=== PATIENT | female | born 1995 | race Caucasian/White ===

== ENCOUNTER → 2021-05-23 13:01 | Outpatient (CLI) | payer OTHER, SELFPAY ==
--- NOTE | 2021-05-23 13:04 | DI.US.S_ITS ---
PROCEDURE: US OB LIMITED INDICATIONS: DATING OUTSIDE/PRIOR DATING DATA: Last menstrual period (LMP): Uncertain . First dating scan (date and location): [facility]; May 23, 2021 . Estimated date of delivery (YONY) from first dating scan: November 04, 2021 . TECHNIQUE: Real-time scanning was performed of the fetus, with image documentation and biometric measurements. COMPARISON: None. FINDINGS: General: A single living intrauterine gestation is present. Presentation: Variable. Placenta: Placental position is posterior , without previa. Amniotic fluid index: 13.3 cm, normal range is 5-24 cm. heart rate: 143 beats per minute. Maternal cervical canal: Not evaluated. biometrics: Biparietal diameter: 3.7 cm Head circumference: 13 cm Abdominal circumference: 10.4 cm Femur length: 1.8 cm Estimated gestational age from initial scan: not applicable. Composite gestational age from present scan: 16 weeks, 3 days Estimated weight: 141 g +/-21 g Measurement variability for biometric dating: +/- 7 days from 14 weeks to 15 weeks 6 days gestation, +/- 10 days from 16 weeks to 21 weeks 6 days gestation, +/- 2 weeks from 22 weeks to 27 weeks 6 days gestation, +/- 3 weeks for 28 weeks gestation or later. weight reference: 4500 g or EFW >90/95% is considered macrosomia or large for gestational age. EFW <10% is small for gestational age. EFW 5% or less is considered intra-uterine growth restriction. Other: Not applicable. IMPRESSION: Live single intrauterine gestation as detailed above. Dictated by: Amador Owens M.D. on 05/23/2021 at 14:33 Approved by: Amador Owens M.D. on 05/23/2021 at 14:36
== END ==
PROVIDERS: PCP Physician Assistant; Referring Provider Family Medicine; Visit Provider Family Medicine
DX: Z34.82 Encounter for supervision of other normal pregnancy, second trimester (principal); Z3A.16 16 weeks gestation of pregnancy
CPT/HCPCS: 76815

== ENCOUNTER → 2021-06-19 10:03 | Outpatient (CLI) | payer OTHER, SELFPAY ==
[2021-06-19 11:05] LABS: Appearance Urine UA SL CLOUDY; Bilirubin Urine UA NEGATIVE (NEGATIVE); Color Urine UA YELLOW; Glucose Urine UA NEGATIVE (Negative); Ketones Urine UA NEGATIVE (NEGATIVE); Leukocyte Esterase Urine UA 2+ (NEGATIVE); Nitrite Urine UA NEGATIVE (Negative); Occult Blood Urine UA NEGATIVE (Negative); Protein Urine UA NEGATIVE (Negative); Specific Gravity Urine UA <=1.005 (1.000-1.035); Urobilinogen Urine UA 0.2 E.U./dL (0.2)
[2021-06-19 11:07] LABS: Add Manual Diff / Slide Review NO; Basophils Absolute Auto 0 /uL (0-100); Basophils Percent Auto 0.4 % (0-2); Eosinophils Absolute Auto 100 /uL (0-450); Hematocrit 34.5 % (36-46); Hemoglobin 11.9 g/dL (12.0-16.0); Lymphocytes Absolute Auto 2200 /uL (1100-4500); Lymphocytes Percent Auto 23.6 % (25-40); Mean Corpuscular HGB Conc 34.5 % (30-36); Mean Corpuscular Hemoglobin 30.7 PG (26-34); Monocytes Absolute Auto 600 /uL (0-900); Monocytes Percent Auto 6.8 % (3-14); Neutrophils Absolute Auto 6300 /uL (1500-7000); Neutrophils Percent Auto 68.2 % (50-75); Platelet Count 200 X10^3/uL (150-400); Red Blood Cell Count 3.87 X10^6/uL (4.0-5.2); Red Cell Distribution Width 13.8 % (11.6-14.8); White Blood Cell Count 9.2 X10^3/uL (4.5-11.0)
[2021-06-19 11:12] LABS: Amorphous Sediment Urine 1+; Bacteria Urine Moderate (10-30); RBC Urine None Seen (0-5/HPF); Squamous Epithelial Cell Urine 10-30 /HPF (0-5/HPF); WBC Urine 1-5/HPF (0-5/HPF)
[2021-06-20 08:26] LABS: RPR Screen Non Reactive (Non Reactive)
[2021-06-20 08:36] LABS: Varicella IgG Antibody 1303 index (Immune >165)
[2021-06-23 00:04] LABS: AFP, Serum 67.1 ng/mL (.); Calc Gestational Age EDD (.); Estriol, Free 1.75 ng/mL (.); Inhibin A, Dimeric 289.56 pg/mL (.); Inhibin A, MoM 1.65 (.); Maternal Ethnicity Caucasian (.); Maternal Weight 173 lbs (.); Number of Fetuses No (.); OSBR Risk 1 IN 5748 (.); Results Report (.); Test Results *Screen Negative* (.); hCG, MoM 1.17 (.); hCG, Serum 26389 mIU/mL (.)
== END ==
PROVIDERS: PCP Physician Assistant; Referring Provider Family Medicine; Visit Provider Family Medicine
DX: Z34.82 Encounter for supervision of other normal pregnancy, second trimester; Z3A.19 19 weeks gestation of pregnancy
CPT/HCPCS: 36415; 80055; 81003; 81015; 82105; 82677; 84702; 86336; 86787; 86803; 86850; 86900; 86901; 87086

== ENCOUNTER → 2021-06-29 12:02 | Outpatient (CLI) | payer OTHER, SELFPAY ==
--- NOTE | 2021-06-29 12:03 | DI.US.S_ITS ---
PROCEDURE: US OB >= 14 WEEKS FETUS INDICATIONS: ANATOMY OUTSIDE/PRIOR DATING DATA: Last menstrual period (LMP): Unknown. First dating scan (date and location): [facility]; May 23, 2021. Estimated date of delivery (YONY) from first dating scan: November 04, 2021. The calculations are made using the ultrasound YONY of November 04, 2021. TECHNIQUE: Real-time scanning was performed of the fetus, with image documentation and biometric measurements. COMPARISON: None. FINDINGS: General: A single living intrauterine gestation is present. Presentation: Breech. Placenta: Placental position is right fundal , without previa. Amniotic fluid index: 12.7 cm, normal range is 5-24 cm. Single deepest vertical pocket is 4.5 cm. heart rate: 149 beats per minute. Maternal cervical canal: 3.9 cm long. Normal lower limit is 2.5 cm. biometrics: Biparietal diameter: 5.3 cm Head circumference: 19.9 cm Abdominal circumference: 16.2 cm Femur length: 3.5 cm Clinically estimated gestational age: 21 weeks, 5 days Composite gestational age from present scan: 21 weeks, 5 days Estimated weight and percentile: 417 g +/-62 g; 26th percentile Anatomic survey: Neuro: Ventricles are non-dilated at less than 10 mm. Cisterna magna is normal at 3-11 mm. Cerebellum is normal in size and morphology. Nuchal skin fold: Normal at less than 6 mm between 14-21 weeks gestational age. Face: Nose and lips, facial profile are normal. Spine: No evidence for spina bifida. Heart: 4-chambered heart is present, with normal ventricular outflow tracts. Diaphragm: Diaphragm is intact. Stomach: Left-sided stomach is present. Kidneys: No hydronephrosis. Normal is less than 5 mm in 2nd trimester, less than 7 mm in 3rd trimester. Cord: 3-vessel cord has orthotopic insertion. Bladder: Normal in size. Extremities: All 4 extremities identified. IMPRESSION: No significant abnormality. We strive to produce accurate, complete, and clear reports of imaging services. To assist us in improving patient care, this report was composed using standard report templates and voice recognition software. Therefore, it may contain abnormal punctuation, insertions and/or omissions. Occasional wrong-word or sound-alike substitutions may occur. Though we review the report and make efforts to correct it, we do recommend that the report be read carefully in proper context to recognize any text inaccuracies. Dictated by: Amador Owens M.D. on 06/29/2021 at 14:05 Approved by: Amador Owens M.D. on 06/29/2021 at 14:08
== END ==
PROVIDERS: PCP Physician Assistant; Referring Provider Family Medicine; Visit Provider Family Medicine
DX: Z36.89 Encounter for other specified antenatal screening (principal); Z3A.21 21 weeks gestation of pregnancy
CPT/HCPCS: 76811

== ENCOUNTER → 2021-08-17 11:12 | Outpatient (CLI) | payer OTHER, SELFPAY ==
[2021-08-17 13:41] LABS: Add Manual Diff / Slide Review NO; Basophils Absolute Auto 0 /uL (0-100); Basophils Percent Auto 0.2 % (0-2); Eosinophils Absolute Auto 100 /uL (0-450); Eosinophils Percent Auto 1.5 % (2-4); Hematocrit 31.6 % (36-46); Hemoglobin 11.2 g/dL (12.0-16.0); Lymphocytes Absolute Auto 1800 /uL (1100-4500); Lymphocytes Percent Auto 20.2 % (25-40); Mean Corpuscular HGB Conc 35.3 % (30-36); Mean Corpuscular Hemoglobin 31.5 PG (26-34); Mean Corpuscular Volume 89.4 fL (80-100); Monocytes Absolute Auto 800 /uL (0-900); Monocytes Percent Auto 8.7 % (3-14); Neutrophils Absolute Auto 6100 /uL (1500-7000); Neutrophils Percent Auto 69.4 % (50-75); Platelet Count 178 X10^3/uL (150-400); Red Blood Cell Count 3.54 X10^6/uL (4.0-5.2); Red Cell Distribution Width 13.5 % (11.6-14.8); White Blood Cell Count 8.8 X10^3/uL (4.5-11.0)
[2021-08-17 14:33] LABS: GTT (PREG) 1 Hour PP 50gm Dose 82 mg/dL (76-139)
== END ==
PROVIDERS: PCP Physician Assistant; Referring Provider Family Medicine; Visit Provider Family Medicine
DX: Z34.03 Encounter for supervision of normal first pregnancy, third trimester (principal); Z3A.27 27 weeks gestation of pregnancy
CPT/HCPCS: 36415; 82950; 85025

== ENCOUNTER → 2021-10-10 10:47 | Outpatient (CLI) | payer OTHER, SELFPAY | PROVIDERS: PCP Physician Assistant; Visit Provider Family Medicine | DX: Z13.9 Encounter for screening, unspecified (principal); O99.820 Streptococcus B carrier state complicating pregnancy; Z3A.35 35 weeks gestation of pregnancy | CPT/HCPCS: 87081; 87653 ==

== ENCOUNTER 2021-11-13 16:52 | Outpatient (CLI) | payer OTHER, SELFPAY | END 2021-11-13 17:48 | disposition home or self-care (01) | LOC: OB 11-15 07:34 | PROVIDERS: PCP Physician Assistant; Referring Provider Family Medicine; Visit Provider Family Medicine | DX: O42.92 Full-term premature rupture of membranes, unspecified as to length of time between rupture and onset of labor (principal); O48.0 Post-term pregnancy; Z3A.40 40 weeks gestation of pregnancy | CPT/HCPCS: 59025; 84112; G0378; G0379 ==

== ENCOUNTER 2021-11-15 01:24 | Inpatient (IN) | payer OTHER, SELFPAY ==
[2021-11-15] MEDS: LACTATED RINGERS 1,000 ML 100 ML IV ×3 (02:15→11:08)
[2021-11-15 02:34] LABS: Add Manual Diff / Slide Review NO; Basophils Absolute Auto 0 /uL (0-100); Basophils Percent Auto 0.3 % (0-2); Eosinophils Absolute Auto 100 /uL (0-450); Eosinophils Percent Auto 1.3 % (2-4); Hematocrit 35.4 % (36-46); Hemoglobin 11.8 g/dL (12.0-16.0); Lymphocytes Absolute Auto 2400 /uL (1100-4500); Lymphocytes Percent Auto 21.9 % (25-40); Mean Corpuscular HGB Conc 33.4 % (30-36); Mean Corpuscular Hemoglobin 30.2 PG (26-34); Mean Corpuscular Volume 90.4 fL (80-100); Monocytes Absolute Auto 1200 /uL (0-900); Monocytes Percent Auto 10.7 % (3-14); Neutrophils Absolute Auto 7300 /uL (1500-7000); Neutrophils Percent Auto 65.8 % (50-75); Platelet Count 165 X10^3/uL (150-400); Red Blood Cell Count 3.92 X10^6/uL (4.0-5.2); Red Cell Distribution Width 13.6 % (11.6-14.8); White Blood Cell Count 11.1 X10^3/uL (4.5-11.0)
[2021-11-15 02:45] LABS: COVID19 -Nasal RAPID Negative (Negative)
[2021-11-15] MEDS: fentaNYL 100 MCG/2 ML INJ (02:55)
[2021-11-15] MEDS: FENT 2MCG/ML BUPIV 0.125% EPI 200 MCG/100 ML PLAST..BAG 12 MCG EPIDURAL ×2 (03:05→09:15)
[2021-11-15] MEDS: ONDANSETRON 4 MG/2 ML INJ IV (03:10)
--- NOTE | 2021-11-15 03:13 | PM.AN.REGBLK ---
Regional Block Pre-procedure Procedure: Continuous Lumbar Epidural for L&D Attending OB provider: Ailin Saucedo PMH/ROS narrative: Hx: No personal or family history of anesthesia problems. PSH/Anesthesia history narrative: none Exam narrative: MP1, RRR< CTAB ASA Class: II Labs: Hct 35.4 % (36-46) L 11/15/21 02:15 Plt Count 165 X10^3/uL (150-400) 11/15/21 02:15 Medications: Current Medications Generic Name Dose Route Start Last Admin Trade Name Freq PRN Reason Stop Dose Admin Carboprost Tromethamine 250 mcg 11/15/21 02:04 Carboprost 250 Mcg/Ml Ampul IM Q90M PRN Bleeding Lactated Ringer's 1,000 mls @ 100 mls/hr 11/15/21 02:15 11/15/21 02:15 Lactated Ringers IV 100 mls/hr CONT LAINE Administration Oxytocin/Lactated Ringer's 30 unit in 500 mls @ 200 mls/hr 11/15/21 02:04 Oxytocin Premix IV CONT PRN Bleeding Protocol Tranexamic Acid 1,000 mg/ 100 mls @ 200 mls/hr 11/15/21 02:04 Sodium Chloride IV NOW PRN Bleeding Methylergonovine Maleate 0.2 mg 11/15/21 02:04 Methylergonovine 0.2 Mg Tablet PO Q6HR PRN Heavy Bleeding Methylergonovine Maleate 0.2 mg 11/15/21 02:04 Methylergonovine 0.2 Mg/Ml Vial IM NOW PRN Bleeding Misoprostol 800 mcg 11/15/21 02:04 Misoprostol 200 Mcg Tablet WV NOW PRN Bleeding Misoprostol 1,000 mcg 11/15/21 02:04 Misoprostol 200 Mcg Tablet WV NOW PRN Bleeding Misoprostol 400 mcg 11/15/21 02:04 Misoprostol 200 Mcg Tablet SL NOW PRN Bleeding Ondansetron HCl 4 mg 11/15/21 02:04 Ondansetron 4 Mg/2 Ml Inj IV Q4HR PRN Nausea And Vomiting Oxytocin 10 unit 11/15/21 02:04 Oxytocin 10 Unit/Ml Vial IM NOW PRN Bleeding Allergies: Allergies Allergy/AdvReac Type Severity Reaction Status Date / Time No Known Drug Allergies Allergy Verified 11/07/21 14:07 Procedure Insertion date: 11/15/21 Insertion time: 02:57 Prep/Local: betadine x3 (chloroprep) and 1% lidocaine Interspace: L2-3 Patient position: sitting Needle: 18 gauge Katietead (with 27G pencil point needle-through needle for IT dose) Loss of resistance with: saline (with air bubble) DENYS at (cm): 5 Catheter placed at SKIN (cm): 11 Catheter in SPACE (cm): 6 Insertion: Yes CSF, No Blood, No Paresthesia with insertion, No Paresthesia with injection and No Test dose reaction Initial Medications TEST DOSE time: 02:57 TEST DOSE: 1.5% lidocaine with epinephrine 1:200k (mL): 5 (3mL initial test dose, 2mL as part of first bolus) BOLUS DOSE time: 02:58 BOLUS DOSE (mL): 2 BOLUS DOSE med: other (10mcg fentanyl intrathecally, 90mcg fentanyl via epidural catheter) Infusion INFUSION: 0.0625% bupivacaine and with fentanyl 2 mcg/mL Initial rate (mL/hr): 12 (with bolus of 5mL Q15min lockout) Post-procedure Anesthesia time START: 02:43 Anesthesia time END: 12:05 Post-procedure Anesthesia Assessment: No Anesthesia complications
--- NOTE | 2021-11-15 08:06 | P.HPOB_ITS ---
OB HPI Date/Time Date of admission: 11/15/21 Date Patient Seen: 11/15/21 Time Patient Seen: 07:20 History of Present Condition Chief complaint: CONTRACTIONS YONY Calculator Estimated Delivery Date Method Current WG Current Estimate 11/12/21 LMP (Certain) 40w 3d : 2 Para: 0 Narrative: 25-year-old at 40 weeks and 3 days who arrived to the center in active labor. Contractions began late last night and increased in intensity. Denies leaking or bleeding and reports good movement. has been uncomplicated. care: good care, initiated at week # (15), number of visits (11) and pounds weight gain (13) Dating criteria OB: LMP confirmed by 2nd trimester US Ultrasounds: normal mid trimester US Obstetrical complications: none Medical complications OB: none Preadmission Labs Last OB Lab Results: Blood Type A Positive 11/15/21 02:15 11/15/21 Antibody Screen Negative 11/15/21 02:15 11/15/21 Hematocrit 35.4 % (36-46) L 11/15/21 02:15 11/15/21 Hemoglobin 11.8 g/dL (12.0-16.0) L 11/15/21 02:15 11/15/21 Hepatitis B Surface Antigen Negative s/c (NEGATIVE) 06/19/21 10:25 06/19/21 Hepatitis C Antibody Negative s/c (NEGATIVE) 06/19/21 10:25 06/19/21 Rubella Antibody 7.7 IU/mL (>15) L 06/19/21 10:25 06/19/21 Varicella-Zoster IgG Antibody 1303 index (Immune >165) 06/19/21 10:25 06/19/21 Glucose 1 Hour 82 mg/dL (76-139) 08/17/21 12:27 08/17/21 -: Chlamydia screen: negative, Gonorrhea screen: negative and Urine: negative Genetic Screens: Quad screen: Normal External Labs -: Urine: negative Prior (ies) Past Pregnancies Del. Date GA/Weeks Labor Lgth Wt Sex Route Outcome Anesthesia Place Delv Breastfeed Preg Comp Name 12/12/16 8 elective Delivery Date: 12/12/16 Last Updated by: Faith Aceves MD (Pt prefers not to discuss at appointment). D&C, no complications. Evaluation Evaluation Baseline heart rate: 125 Variability: Moderate (11-25) monitor accelerations: Present Monitor Decelerations: Late (Subtle late decels, resolved with fluid bolus and position change) Contraction Frequency (minutes): 3 Status: Category ll Dilation (cm): 4 Effacement (%): 100 station: -2 [facility] Medical History Left elbow fracture (~2002) Wrist fracture, bilateral (~1999) Family History Mother Depression Bipolar 1 disorder Father No problems noted. Grandmother Depression Grandfather Unknown family medical history Grandmother Lung cancer Smoker Grandfather Myocardial infarct Diabetes mellitus Liver failure Lip cancer Social History marital status: unmarried,living together number of children: 0 household members: significant other lives independently: Yes caregiver/support person: No housing: house pets and animals: Yes (2 dogs: safe.) education level: college (Some college. 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 ) frequency: daily duration: 30-45 minutes/day Meds Home Medications and Allergies Home Medications Medication Instructions Recorded Confirmed Type double electric breast pump & #1 ea 09/26/21 11/07/21 Rx supplies Allergies Allergy/AdvReac Type Severity Reaction Status Date / Time No Known Drug Allergies Allergy Verified 11/07/21 14:07 OB Exam Narrative Exam Narrative: Temperature 35.7? blood pressure 96/67 heart rate 89 HENMT Head: normal to inspection Mouth: oral mucosae normal Eyes General: appearance normal, both eyes and all related structures Resp Effort & Inspection: normal respiratory effort Cardio Rate: regular rate Rhythm: regular rhythm Extremities Lower extremity: Yes normal to inspection; No edema Presentation: vertex Estimated Weight (lbs): 7 Objective Labs Result Diagrams: 11/15/21 02:15 Labs: Laboratory Results - last 24 hr 11/15/21 11/15/21 11/15/21 02:15 02:15 02:15 WBC 11.1 H RBC 3.92 L Hgb 11.8 L Hct 35.4 L MCV 90.4 MCH 30.2 MCHC 33.4 RDW 13.6 Plt Count 165 Neut % (Auto) 65.8 Lymph % (Auto) 21.9 L Angelina % (Auto) 10.7 Eos % (Auto) 1.3 L Baso % (Auto) 0.3 Neut # (Auto) 7300 H Lymph # (Auto) 2400 Angelina # (Auto) 1200 H Eos # (Auto) 100 Baso # (Auto) 0 SARS-CoV-2 (PCR) Negative Blood Type A Positive Antibody Screen Negative Assessment and Plan Assessment and Plan Assessment and Plan narrative: 25-year-old at 40 weeks and 3 days in active labor. Now comfortable with epidural. GBS negative, COVID negative. She was having subtle late decelerations followed by 2 deeper late decelerations after SVE. Decelerations resolved with fluid bolus in position change and EFM back to category 1. Continue expectant management. Anticipate .
[2021-11-15] MEDS: miSOPROStoL 200 MCG TABLET 800 MCG PR (12:15)
--- NOTE | 2021-11-15 12:46 | PM.OBPRVD ---
Labor & Delivery Delivery date: 11/15/21 Delivery monitor: external FHT Route of delivery: L&D Laceration Description: Perineal - 2nd Degree Delivery repair: vicryl Estimated blood loss (mL): 350 Anesthesia Type: Epidural Narrative: Stage I Patient is a 25-year-old at 40 weeks and 3 days gestation who arrived on labor and delivery in active labor. She went on to receive an epidural with excellent pain control. Spontaneous rupture membranes occurred at 7:45 a.m. with thin meconium. She was complete at 10:39 a.m. however without the urge to push. She was allowed to labor down for an hour. EFM category 1. Stage II She pushed for 17 minutes and delivered a vigorous female infant at 12:05 p.m.. was vertex and LUCIE. There was a loose nuchal cord which was reduced followed by delivery of the infant. was placed on mother's abdomen. Cord was clamped and cut after 1 minute delay. Apgars were 8 and 9. No resuscitation of the required beyond drying, stimulating a bulb suction. Stage III Placenta delivered at 12:15 p.m.. The cord avulsed when the placenta was in the vagina. Placenta was then manually removed from the vagina and was no longer in the uterus. Placenta appeared intact with a three-vessel cord. Pitocin bolus initiated after delivery of the placenta however given persistent trickling with fundal massage, 800 mcg of Cytotec was administered per rectum. There was improvement in uterine tone and hemostasis assured. A second-degree perineal laceration was repaired with 3-0 Vicryl in the usual fashion with good hemostasis. EBL: 350 mL. Needle and sponge counts were correct. The vagina was inspected and no items were left in situ. Patient was doing well with her and partner at bedside. Baby 1: gender: Female Presentation: vertex Position: Left Occiput Anterior Cord Vessel Description: 3 Vessels and Nuchal Cord (X1 reduced) score (1 min): 8 score (5 min): 9 Plan for aftercare: Routine care
[2021-11-15] MEDS: IBUPROFEN 600 MG TABLET PO ×2 (15:40→21:41)
[2021-11-15 19:55] VITALS: BP 119/72
[2021-11-16] MEDS: ACETAMINOPHEN 325 MG TABLET 650 MG PO ×2 (01:21→07:53)
[2021-11-16] MEDS: DERMOPLAST SPRAY 20% 60 ML 1 SPRAY TOP (01:22)
[2021-11-16] MEDS: LANOLIN OINT 7 GM 1 APPLIC TOP (01:22)
[2021-11-16] MEDS: IBUPROFEN 600 MG TABLET PO ×3 (04:03→18:06)
[2021-11-16 07:11] LABS: Hematocrit 29.5 % (36-46); Hemoglobin 10.2 g/dL (12.0-16.0)
[2021-11-16] MEDS: DOCUSATE 100 MG CAPSULE PO (10:27)
--- NOTE | 2021-11-16 13:31 | P.DS_ITS ---
Discharge Providers Provider Date of admission: 11/15/21 01:24 Discharge Date: 11/16/21 Primary care physician: Fernie Li PA-C Consults: 11/16/21 12:47 Consult to Stretcher Helper Routine Comment: Discharge provider: Faith Aceves MD Summary Hospital Course Date Patient Seen: 11/16/21 Time Patient Seen: 13:00 Diagnoses: 40w3d gestation Hospital Course: The pt presented in active labor. She had SROM with thin meconium present. She had an epidural for pain control. She progressed to complete and had an of a viable baby girl without complications. A 2nd degree perineal laceration was then repaired. , there were no complications. At the time of discharge she was voiding, ambulating, and passing flatus without difficulty. Her lochia was decreasing appropriately. She was with good latch. Her pain was well controlled. She will f/u in 6 weeks for check. She most likely desires OCPs for contraception. Peripartum Data Infant Delivery Method: Natural Vaginal Laceration Description: Perineal - 2nd Degree Episiotomy description: None Procedures: Spontaneous vaginal delivery complications: none [place] 1: Gender: Female Disposition of : home Discharge Diagnosis (1) Spontaneous vaginal delivery: Status: Acute Time Spent with Patient Time attestation: Total time spent providing and/or coordinating discharge services: Objective Labs Result Diagrams: 11/16/21 06:49 Labs: Laboratory Results - last 24 hr 11/16/21 06:49 Hgb 10.2 L Hct 29.5 L Exam Narrative Exam Narrative: Gen: NAD, sitting comfortably in bed, appears well CV: RRR, no murmurs Resp: clear to auscultation bilaterally Abd: soft, appropriately tender, fundus firm and below the umbilicus, nondistended Ext: no edema Discharge Plan Discharge Plan Patient Disposition: Home Discharge orders & Medications Prescriptions: New acetaminophen 325 mg Tablet 650 mg PO Q6HR PRN (Reason: Pain, Mild (1-3)) Qty: 30 0RF docusate sodium 100 mg Capsule 100 mg PO DAILY Qty: 30 0RF ibuprofen 600 mg Tablet 600 mg PO Q6HR PRN (Reason: Pain, Mild (1-3)) Qty: 30 0RF Continued (DME) double electric breast pump & supplies See Rx Instructions .ROUTE .MEDSUPPLY Qty: 1 0RF Rx Instructions: As directed Follow up/Referrals: Fernie Li PA-C [Primary Care Provider] - Faith Aceves MD [Physician] - 6 Weeks (Please call clinic to make follow up appointment with Dr Aceves [phone]) Diet/Activity/Treatments Diet: Diet as Tolerated and Regular Skin/Wound/Dressing Care Report to your healthcare provider any signs of infection, such as:: chills, fever, increased pain and unusual drainage Visit Report/Discharge Packet Instructions: DI for Labor and Delivery, Vaginal Stand Alone Forms: Discharge: Care Visit Report Forms: Patient Portal/API, Stroke Signs & Symptoms Discharge Data Primary Care Provider: Fernie Li Discharges patient from system. Discharge Date/Time: 11/16/21 18:50
[2021-11-16 17:39] VITALS: BP 122/74; PULSE 63; RESP 18; TEMP 36.5
== END 2021-11-16 18:50 | disposition home or self-care (01) | DRG 807 ==
PROVIDERS: Admitting Provider Family Medicine; PCP Physician Assistant; Referring Provider Specialist; Visit Provider Family Medicine
DX: O42.02 Full-term premature rupture of membranes, onset of labor within 24 hours of rupture (principal); Z37.0 Single live birth; O48.0 Post-term pregnancy; O70.1 Second degree perineal laceration during delivery; Z3A.40 40 weeks gestation of pregnancy; O69.81X0 Labor and delivery complicated by cord around neck, without compression, not applicable or unspecified; O77.0 Labor and delivery complicated by meconium in amniotic fluid; Z20.822 Contact with and (suspected) exposure to COVID-19
CPT/HCPCS: 01967; 36415; 59050; 59400; 59409; 85014; 85018; 85025; 86850; 86900; 86901; 87635; C9803; G0379; J2405; J3010; S0191

== ENCOUNTER → 2024-05-26 11:07 | Outpatient (CLI) | payer OTHER, SELFPAY ==
[2024-05-26 14:50] LABS: Urine Chlamydia NOT DETECTED; Urine N gonorrhoeae NOT DETECTED
== END ==
PROVIDERS: Visit Provider Obstetrics & Gynecology
DX: Z11.3 Encounter for screening for infections with a predominantly sexual mode of transmission (principal); Z3A.14 14 weeks gestation of pregnancy
CPT/HCPCS: 87491; 87591

== ENCOUNTER → 2024-05-26 12:02 | Outpatient (CLI) | payer OTHER, SELFPAY ==
[2024-05-26 12:58] LABS: Add Manual Diff / Slide Review NO; Basophils Absolute Auto 0 /uL (0-100); Basophils Percent Auto 0.4 % (0-2); Eosinophils Absolute Auto 0 /uL (0-450); Eosinophils Percent Auto 0.5 % (2-4); Hematocrit 38.2 % (36-46); Lymphocytes Absolute Auto 2000 /uL (1100-4500); Mean Corpuscular HGB Conc 33.9 % (30-36); Mean Corpuscular Hemoglobin 29.9 PG (26-34); Mean Corpuscular Volume 88.2 fL (80-100); Monocytes Absolute Auto 500 /uL (0-900); Monocytes Percent Auto 6.2 % (3-14); Neutrophils Absolute Auto 5400 /uL (1500-7000); Neutrophils Percent Auto 67.9 % (50-75); Platelet Count 224 X10^3/uL (150-400); Red Blood Cell Count 4.33 X10^6/uL (4.0-5.2); Red Cell Distribution Width 13.3 % (11.6-14.8); White Blood Cell Count 7.9 X10^3/uL (4.5-11.0)
[2024-05-26 13:14] LABS: Natera Collection Specimen Collected
[2024-05-27 17:32] LABS: Hepatitis B Surface Antigen NEGATIVE s/c (NEGATIVE)
[2024-05-27 17:43] LABS: HIV 1 & 2 Ab/Ag 4th Gen Combo NEGATIVE (NEGATIVE); Hep C Virus Ab w/Reflex Quant NEGATIVE s/c (NEGATIVE)
[2024-05-28 01:08] LABS: RPR Screen Non Reactive (Non Reactive)
== END ==
LOC: LAB 12:03
PROVIDERS: Referring Provider Obstetrics & Gynecology; Visit Provider Obstetrics & Gynecology
DX: Z34.82 Encounter for supervision of other normal pregnancy, second trimester (principal); Z36.0 Encounter for antenatal screening for chromosomal anomalies; Z11.3 Encounter for screening for infections with a predominantly sexual mode of transmission; Z3A.14 14 weeks gestation of pregnancy
CPT/HCPCS: 36415; 80055; 82105; 86787; 86803; 86850; 86900; 86901; 87086; 87389; 87491; 87591

== ENCOUNTER → 2024-08-02 06:57 | Outpatient (CLI) | payer OTHER, SELFPAY ==
--- NOTE | 2024-08-02 06:58 | DI.US.S_ITS ---
PROCEDURE: US OB >= 14 WEEKS FETUS INDICATIONS: 20 week anatomy scan OUTSIDE/PRIOR DATING DATA: Last menstrual period (LMP): 02/13/2024 LMP-based estimated date of delivery (YONY): 11/19/2024 First dating scan (date and location): 05/26/2024 Estimated date of delivery (YONY) from first dating scan: 11/02/2024 The calculations are made using the working YONY of 11/02/2024 TECHNIQUE: Real-time scanning was performed of the fetus, with image documentation and biometric measurements. Endovaginal scanning: Not performed COMPARISON: [facility], OB >= 14 WEEKS FETUS, 06/29/2021, 12:20. FINDINGS: General: A single living intrauterine gestation is present. Presentation: Vertex. Placenta: Placental position is anterior, without previa. Amniotic fluid index: 16.8 cm, normal range is 5-24 cm. Single deepest vertical pocket is 5.9 cm. heart rate: 132 beats per minute. Maternal cervical canal: Closed and measures 5.2 cm long. Normal lower limit is 2.5 cm. biometrics: Biparietal diameter: 6.7 cm, 27 weeks, 1 day. Head circumference: 25.7 cm, 28 weeks, 0 day. Abdominal circumference: 24.3 cm, 28 weeks, 4 days. Femur length: 4.9 cm, 26 weeks, 3 days. Clinically estimated gestational age: 26 weeks, 6 days Composite gestational age from present scan: 27 weeks, 2 days Estimated weight and percentile: 1117 g, 74% Anatomic survey: Neuro: Ventricles are non-dilated at less than 10 mm. Right lateral ventricle measures 4 mm in with. Left lateral ventricle measures 9 mm in with. Cisterna magna is normal at 3-11 mm. Cerebellum is normal in size and morphology. Nuchal skin fold: Normal at less than 6 mm between 14-21 weeks gestational age. Face: Nose and lips, facial profile are normal. Spine: No evidence for spina bifida. Heart: 4-chambered heart is present, with normal ventricular outflow tracts. Diaphragm: Diaphragm is intact. Stomach: Left-sided stomach is present. Kidneys: No hydronephrosis. Normal is less than 5 mm in 2nd trimester, less than 7 mm in 3rd trimester. Cord: 3-vessel cord has orthotopic insertion. Bladder: Normal in size. Extremities: All 4 extremities identified. IMPRESSION: 1. Single live intrauterine gestation with fetus in vertex presentation. heart rate is 132 beats per minute. Normal MICHAEL at 16.8 cm. 2. Normal growth. Estimated weight is at 74th percentile. 3. Lateral ventricle size discrepancy as above. Both ventricles are still measures within normal limits in size. Ultrasound follow-up is recommended. Rest of the anatomic survey is normal. We strive to produce accurate, complete, and clear reports of imaging services. To assist us in improving patient care, this report was composed using standard report templates and voice recognition software. Therefore, it may contain abnormal punctuation, insertions and/or omissions. Occasional wrong-word or sound-alike substitutions may occur. Though we review the report and make efforts to correct it, we do recommend that the report be read carefully in proper context to recognize any text inaccuracies. Dictated by: Ubaldo Pinon M.D. on 08/02/2024 at 13:55 Approved by: Ubaldo Pinon M.D. on 08/02/2024 at 14:02 Closed and
== END ==
PROVIDERS: PCP Family Medicine; Referring Provider Obstetrics & Gynecology; Visit Provider Obstetrics & Gynecology
DX: Z34.82 Encounter for supervision of other normal pregnancy, second trimester (principal); Z3A.26 26 weeks gestation of pregnancy
CPT/HCPCS: 76811

== ENCOUNTER → 2024-08-12 13:34 | Outpatient (CLI) | payer OTHER, SELFPAY ==
--- NOTE | 2024-08-12 13:34 | DI.US.S_ITS ---
PROCEDURE: US OB FOLLOW UP INDICATIONS: F/U ASYMMETRICAL BRAIN LATERAL VENTRICLES LT > RT OUTSIDE/PRIOR DATING DATA: Last menstrual period (LMP): 02/13/2024. LMP-based estimated date of delivery (YONY): 11/19/2024. First dating scan (date and location): 05/26/2024. Estimated date of delivery (YONY) from first dating scan: 11/02/2024. The calculations are made using the ultrasound YONY of 11/02/2024. TECHNIQUE: Real-time scanning was performed of the fetus, with image documentation. Endovaginal scanning: Not performed. COMPARISON: [facility], , OB >= 14 WEEKS FETUS, 08/02/2024, 7:22. FINDINGS: General: A single living intrauterine gestation is present. Presentation: Vertex. Placenta: Placental position is anterior, without previa. Amniotic fluid index: 18 cm, normal range is 5-24 cm. Single deepest vertical pocket is 5 cm. heart rate: 140 beats per minute. Maternal cervical canal: 4.2 cm long. Normal lower limit is 2.5 cm. Clinically estimated gestational age: 28 weeks 2 days Anatomic survey: Neuro: Left lateral ventricle posterior horn measures 10.5 mm (previously 9.0 mm). Right lateral ventricle posterior horn is slit-like. (Normal at less than 10 mm). No conspicuous brain parenchymal abnormality. Cerebellum is normal in size and morphology. Cord: Nuchal cord x2. Chest, abdomen, kidneys, and urinary bladder are unremarkable. IMPRESSION: 1. Ramirez living intrauterine at 28 weeks 2 days based on prior dating. Vertex position. 2. Normal placenta and amniotic fluid. 3. Left lateral ventricle is minimally prominent. Again this is asymmetric compared to the right lateral ventricle which is slit-like. No conspicuous brain parenchymal malformation. 4. New nuchal cord x2. Follow-up OB ultrasound would be helpful. We strive to produce accurate, complete, and clear reports of imaging services. To assist us in improving patient care, this report was composed using standard report templates and voice recognition software. Therefore, it may contain abnormal punctuation, insertions and/or omissions. Occasional wrong-word or sound-alike substitutions may occur. Though we review the report and make efforts to correct it, we do recommend that the report be read carefully in proper context to recognize any text inaccuracies. Dictated by: Duke Akbar M.D. on 08/12/2024 at 16:07 Approved by: Duke Akbar M.D. on 08/12/2024 at 16:19
== END ==
PROVIDERS: PCP Family Medicine; Referring Provider Family Medicine; Visit Provider Family Medicine
DX: O28.3 Abnormal ultrasonic finding on antenatal screening of mother (principal); Z3A.28 28 weeks gestation of pregnancy
CPT/HCPCS: 76816

== ENCOUNTER → 2024-08-27 11:00 | Outpatient (CLI) | payer OTHER, SELFPAY ==
[2024-08-27 14:49] LABS: Hematocrit 36.1 % (36-46); Hemoglobin 12.3 g/dL (12.0-16.0)
[2024-08-27 15:23] LABS: GTT (PREG) 1 Hour PP 50gm Dose 80 mg/dL (76-139)
== END ==
PROVIDERS: PCP Family Medicine; Referring Provider Obstetrics & Gynecology; Visit Provider Obstetrics & Gynecology
DX: Z34.82 Encounter for supervision of other normal pregnancy, second trimester (principal); Z3A.26 26 weeks gestation of pregnancy
CPT/HCPCS: 36415; 82950; 85014; 85018

== ENCOUNTER → 2024-10-12 10:18 | Outpatient (CLI) | payer OTHER, SELFPAY ==
[2024-10-13 11:53] LABS: Strep Grp B PCR NEG for Grp B Strep
== END ==
PROVIDERS: Visit Provider Family Medicine
DX: Z34.80 Encounter for supervision of other normal pregnancy, unspecified trimester (principal)
CPT/HCPCS: 87653

== ENCOUNTER 2024-11-08 18:09 | Inpatient (IN) | payer OTHER, SELFPAY ==
[2024-11-08 18:39] VITALS: BP 114/66
[2024-11-08 19:57] LABS: Add Manual Diff / Slide Review NO; Basophils Absolute Auto 0 /uL (0-100); Basophils Percent Auto 0.4 % (0-2); Eosinophils Absolute Auto 100 /uL (0-450); Eosinophils Percent Auto 1.1 % (2-4); Hematocrit 35.6 % (36-46); Hemoglobin 12.5 g/dL (12.0-16.0); Lymphocytes Absolute Auto 2500 /uL (1100-4500); Lymphocytes Percent Auto 25.4 % (25-40); Mean Corpuscular Hemoglobin 32.1 PG (26-34); Mean Corpuscular Volume 91.5 fL (80-100); Monocytes Absolute Auto 800 /uL (0-900); Monocytes Percent Auto 7.8 % (3-14); Neutrophils Absolute Auto 6400 /uL (1500-7000); Neutrophils Percent Auto 65.3 % (50-75); Platelet Count 185 X10^3/uL (150-400); Red Blood Cell Count 3.89 X10^6/uL (4.0-5.2); Red Cell Distribution Width 13.7 % (11.6-14.8); White Blood Cell Count 9.7 X10^3/uL (4.5-11.0)
[2024-11-08] MEDS: miSOPROStoL 25 MCG TABLET 50 MCG PO (20:08)
[2024-11-09] MEDS: miSOPROStoL 25 MCG TABLET 50 MCG PO ×2 (00:05→04:03)
--- NOTE | 2024-11-09 08:19 | P.HPOB_ITS ---
OB HPI Date/Time Date of admission: 11/08/24 Date Patient Seen: 11/09/24 History of Present Condition Chief complaint: induction YONY Calculator 2 Estimated Delivery Date Method Current WG Current Estimate 11/02/24 Ultrasound #1 41w 3d Other Estimates 11/19/24 LMP (Certain) 39w 0d Estimated Gestational Age (weeks): 41w0d : 3 Para: 1 Narrative: 28yo at 41w0d here for post-dates IOL. She denies any vaginal bleeding or LOF. She has mild cramping since the cytotec overnight. She is feeling her baby move regularly. The pts was complicated by asymmetry on ventricles seen on anatomy scan, normalized on repeat scanning with MFM. care: good care, initiated at week # (17) and pounds weight gain (28) Dating criteria OB: based on 1st trimester US only Ultrasounds: normal 1st trimester US and abnormal US findings (ventricle asymmetry) Obstetrical complications: none Medical complications OB: none Indications Indication for induction OB: post dates Preadmission Labs Last OB Lab Results: 2 Blood Type A Positive 11/08/24 18:50 Antibody Screen Negative 11/08/24 18:50 Hct 35.6 % (36-46) L 11/08/24 18:50 Hgb 12.5 g/dL (12.0-16.0) 11/08/24 18:50 Hep Bs Antigen Negative s/c (NEGATIVE) 05/26/24 12:14 Hepatitis C Antibody Negative s/c (NEGATIVE) 05/26/24 12:14 Rubella Antibody 12.0 IU/mL (>15) L 05/26/24 12:14 VZV IgG Antibody Reactive (Non Reactive) 05/26/24 12:14 Glucose 1 Hr 50 gm 80 mg/dL (76-139) 08/27/24 11:39 Group B Strep (PCR) Neg for grp b strep 10/12/24 10:19 -: Urine: negative Genetic Screens: Quad screen: Normal External Labs -: Urine: negative Prior (ies) Past Pregnancies Del. Date GA/Weeks Labor Lgth Wt Sex Route Outcome Anesthesia Place Delv Breastfeed Preg Comp Name 12/12/16 8 elective 11/15/21 ~40 12 8 lb 8 oz Female vaginal live - full term ep idural IH 6 months none [place] Delivery Date: 12/12/16 Last Updated by: Faith Aceves MD (Pt prefers not to discuss at appointment). D&C, no complications. Evaluation Evaluation Baseline heart rate: 130 Variability: Moderate (11-25) monitor accelerations: Present Monitor Decelerations: Absent Contraction Frequency (minutes): 6 Uterine Contraction Intensity: Mild Status: Category l Dilation (cm): 3.5 Effacement (%): 60 Dilation: 3-4 cm Effacement: 60-70% station: -4 Position of cervix: posterior Consistency: soft Hebert score: 6 [facility] Medical History (Updated 05/25/24 @ 09:12 by Michell Germain RN) Shoulder injury (~07/2022) Spontaneous vaginal delivery Wrist fracture, bilateral (~1999) Left elbow fracture (~2002) Surgical History (Updated 05/25/24 @ 09:12 by Michell Germain RN) No pertinent past surgical history Family History (Updated 05/25/24 @ 09:14 by Michell Germain RN) Mother Depression Bipolar 1 disorder Father No problems noted. Grandmother Depression Grandfather Unknown family medical history Grandmother Lung cancer Smoker Grandfather Myocardial infarct Diabetes mellitus Liver failure Lip cancer Social History marital status: unmarried,living together number of children: 1 household members: significant other and children lives independently: Yes caregiver/support person: Yes housing: house pets and animals: Yes (2 dogs: safe.) education level: college (Some college. 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: Yes (off hazmat duties since becoming ) special danielle needs: No travel history: recent ([facility], [place]) seatbelt use: always water heater temp set < 120 deg: Yes working smoke detector in home: Yes fire extinguisher in home: Yes carbon monox detector in home: Yes firearms in home: No do you feel safe at home: Yes Tobacco: How many years used: 7 (1/2 ppd.) quit status: has quit before (Quit w this : last cig 02/22/21.) second hand exposure: No alcohol intake: never (not since ) substance use type: does not use during the past year weight has: remained stable well-balanced diet: daily or most days daily servings fruits/ve or more times/day (lots) caffeine: Yes (single cup coffee in AM) Type(s) of exercise: walking (several miles daily) frequency: daily duration: 30-45 minutes/day Meds Home Medications and Allergies Home Medications Medication Instructions Recorded Confirmed Type vitamin-ferrous sulfate tab PO 05/25/24 11/01/24 History 27 mg iron-folic acid 0.8 mg tablet Double Electric Breast Pump and #1 ea 08/24/24 11/01/24 Rx Supplies acetaminophen 325 mg tablet 650 mg (2 x 325 mg) PO Q6HR PRN 11/10/24 Rx Pain, Mild (1-3) #30 tabs docusate sodium 100 mg capsule 100 mg PO DAILY #30 caps 11/10/24 Rx ibuprofen 600 mg tablet 600 mg PO Q6HR PRN Pain, Mild 11/10/24 Rx (1-3) #60 tabs Allergies Allergy/AdvReac Type Severity Reaction Status Date / Time No Known Drug Allergies Allergy Verified 11/01/24 11:23 OB Exam Resp Effort & Inspection: normal respiratory effort Auscultation: clear to auscultation bilaterally Cardio Rate: regular rate Rhythm: regular rhythm Heart Sounds: S1 normal, S2 normal and no murmurs GI Inspection: non-distended Palpation: Yes soft and No tender Presentation: vertex Objective Labs 11/08/24 18:50 Labs: Laboratory Results - last 24 hr 11/08/24 18:50 WBC 9.7 RBC 3.89 L Hgb 12.5 Hct 35.6 L MCV 91.5 MCH 32.1 MCHC 35.0 RDW 13.7 Plt Count 185 Neut % (Auto) 65.3 Lymph % (Auto) 25.4 [place] % (Auto) 7.8 Eos % (Auto) 1.1 L Baso % (Auto) 0.4 Neut # (Auto) 6400 Lymph # (Auto) 2500 [place] # (Auto) 800 Eos # (Auto) 100 Baso # (Auto) 0 Blood Type A Positive Antibody Screen Negative Assessment and Plan Assessment and Plan Assessment and Plan narrative: 28yo at 41w0d here for IOL for post-dates. GBS negative, Rh positive. Hebert score 6. - Start pitocin, titrate as tolerated - FHT reassuring - GBS negative, no prophylaxis indicated - Epidural for pain control when desired Time-Based Coding :: [TOTAL MINUTES] spent with patient and on the chart (including review of chart, obtaining history, exam, reviewing outside data, placing orders, documenting exam and treatment plan, and counseling patient) on [DATE].
[2024-11-09] MEDS: LACTATED RINGERS 1,000 ML 100 ML IV (09:56)
[2024-11-09] MEDS: OXYTOCIN PREMIX 30 UNIT/500 ML PLAST..BAG IV (09:56)
--- NOTE | 2024-11-09 15:24 | PM.AN.REGBLK ---
[facility] <Leola Pascual CRNA - Last Filed: 11/10/24 08:09> Pre-procedure Procedure: Continuous Lumbar Epidural for L&D Attending OB provider: Faith Aceves PMH/ROS narrative: Healthy here for induction of labor requesting MCKENNA for labor pain. PSH/Anesthesia history narrative: Previos lumbar epidural without complication Exam narrative: See pre-anesthesia eval. ASA Class: II Labs: Hct 35.6 % (36-46) L 11/08/24 18:50 Plt Count 185 X10^3/uL (150-400) 11/08/24 18:50 Medications: Current Medications Generic Name Dose Route Start Last Admin Trade Name Freq PRN Reason Stop Dose Admin Butorphanol Tartrate 0.5 mg 11/09/24 15:21 Butorphanol 1 Mg/Ml Vial IV 11/10/24 15:22 Q3HR PRN PRURITUS Calcium Carbonate 1,000 mg 11/08/24 19:49 Calcium Carbonate 500 Mg Tab PO Q2HR PRN Dyspepsia Carboprost Tromethamine 250 mcg 11/08/24 19:49 Carboprost 250 Mcg/Ml Ampul IM Q90M PRN Bleeding Diphenhydramine HCl 25 mg 11/09/24 15:21 Diphenhydramine 50 Mg/Ml Vial IV 11/10/24 15:22 Q3HR PRN PRURITUS Fentanyl 50 mcg 11/08/24 19:49 Fentanyl 100 Mcg/2 Ml Inj IV Q1H PRN Pain, Moderate (4-6) Oxytocin/Lactated Ringer's 30 unit in 500 mls @ 200 mls/hr 11/08/24 19:49 Oxytocin Premix IV CONT PRN Bleeding Protocol Tranexamic Acid 1,000 mg/ 100 mls @ 600 mls/hr 11/08/24 19:49 Sodium Chloride IV NOW PRN Bleeding Oxytocin/Lactated Ringer's 30 unit in 500 mls @ 2 mls/hr 11/08/24 20:00 11/09/24 09:56 Oxytocin Premix IV 2 milliunit/min TITRATE LAINE 2 mls/hr Administration Protocol 2 MILLIUNIT/MIN Lidocaine HCl 20 ml 11/08/24 19:49 Lidocaine 1% 20 Ml INJ INTRA-OP PRN Post Delivery Methylergonovine Maleate 0.2 mg 11/08/24 19:49 Methylergonovine 0.2 Mg Tablet PO Q6HR PRN Heavy Bleeding Methylergonovine Maleate 0.2 mg 11/08/24 19:49 Methylergonovine 0.2 Mg/Ml Vial IM NOW PRN Bleeding Metoclopramide HCl 10 mg 11/09/24 15:21 Metoclopramide 10 Mg/2 Ml Inj IV 11/10/24 15:22 Q4H PRN Nausea Mineral Oil 30 ml 11/08/24 19:49 Mineral Oil 30 Ml Udc TOP PRN PRN Version Misoprostol 800 mcg 11/08/24 19:49 Misoprostol 200 Mcg Tablet [place] NOW PRN Bleeding Misoprostol 400 mcg 11/08/24 19:49 Misoprostol 200 Mcg Tablet SL NOW PRN Bleeding Misoprostol 50 mcg 11/08/24 19:49 11/09/24 04:03 Misoprostol 25 Mcg Tablet PO 50 mcg Q4H PRN Administration cervical ripening Nalbuphine HCl 5 mg 11/09/24 15:21 Nalbuphine 20 Mg/Ml Ampul IV Q6H PRN PRURITIS Naloxone HCl 0.2 mg 11/08/24 19:49 Naloxone 0.4 Mg/Ml Vial IV Q2MIN PRN Opiate Reversal Naloxone HCl 0.4 mg 11/09/24 15:21 Naloxone 0.4 Mg/Ml Vial IV Q2MIN PRN Opiate Reversal Ondansetron HCl 4 mg 11/08/24 19:49 Ondansetron 4 Mg/2 Ml Inj IV Q4HR PRN Nausea And Vomiting Ondansetron HCl 4 mg 11/09/24 17:00 Ondansetron 4 Mg/2 Ml Inj IV 11/09/24 21:01 Q4HR LAINE Oxytocin 10 unit 11/08/24 19:49 Oxytocin 10 Unit/Ml Vial IM NOW PRN Bleeding Allergies: Allergies Allergy/AdvReac Type Severity Reaction Status Date / Time No Known Drug Allergies Allergy Verified 11/01/24 11:23 Procedure Insertion date: 11/09/24 Insertion time: 14:54 Prep/Local: 1% lidocaine (5mL, and CHG to back for skin prep) Interspace: L2/3 Patient position: sitting Needle: 18 gauge Hustead (and 27g pencan through hustead for dural puncture) Loss of resistance with: saline DENYS at (cm): 5 (4.5) Catheter placed at SKIN (cm): 12 Catheter in SPACE (cm): 7 (7.5) Insertion: No CSF, No Blood, No Paresthesia with insertion, No Paresthesia with injection and No Test dose reaction Initial Medications TEST DOSE time: 14:55 TEST DOSE: 1.5% lidocaine with epinephrine 1:200k (mL): 3 BOLUS DOSE time: 14:58 BOLUS DOSE (mL): 10 BOLUS DOSE med: other (infusate) Infusion INFUSION: 0.125% bupivacaine and with fentanyl 2 mcg/mL Initial rate (mL/hr): 10 Subsequent interventions: 1520: Patient with 10/10 contraction pain prior to epidural, now stating no pain at all on right side, but still 10/10 pain on left. Has been side lying on left since epidural placement. Bolus of 2% Lido 5mL. -AB 1530: Pt now states absolutely now pain. She was turned on to her right side. Her dermatome level to cold sensation is to T10 bilaterally. She was given her PCEA button to use. -AB Post-procedure Anesthesia date START: 11/09/24 Anesthesia time START: 14:46 <Sandra Charlton DO - Last Filed: 11/09/24 19:23> Post-procedure Anesthesia date END: 11/09/24 Anesthesia time END: 17:42 Post-procedure Anesthesia Assessment: Yes CV function: HR/BP stable, Yes Resp function: RR/sat/airway adequate, Yes Post-op hydration adequate, Yes Pain control adequate, Yes Nausea & vomiting absent, Yes Temperature > 36 C, Yes Mental status appropriate and No Anesthesia complications
--- NOTE | 2024-11-09 18:05 | PM.OBPRVD ---
Labor & Delivery Delivery date: 11/10/24 Delivery Time: 17:42 Cervical ripening method: per misoprostal protocol Induction method: per pitocin protocol Delivery monitor: external FHT and external uterine Route of delivery: Episiotomy description: None L&D Laceration Description: None Quantitative Blood Loss: 100 Anesthesia Type: Epidural Complications: None Narrative: PROCEDURE: at 41w0d presented for post-dates IOL and was admitted to Labor and Delivery. She received cytotec for IOL, and then was started on Pitocin. The patient progressed through the 1st stage over 2 hours. Pain was controlled with an epidural. SROM occured at 15:13 with clear fluid. The patient progressed through the 2nd stage over 33 minutes and delivered a viable female with APGARs 9/9 at 17:42 via without complications. The cord was cut and clamped after it stopped pulsating. The placenta delivered with gentle cord traction, and appeared complete. The perineum and vagina were inspected with no lacerations. Needle and sponge counts were correct.? The vagina was inspected and no items were left in situ. Krista was doing well with Shayy, her and her Ronak braden, at bedside. PREPROCEDURE DIAGNOSIS: Intrauterine at 41w0d GBS negative RH positive POSTPROCEDURE DIAGNOSIS: Intrauterine at 41w0d, delivered Same as preprocedure [place] Baby 1: Infant gender: Female Presentation: vertex Position: Left Occiput Anterior Placenta delivery description: Spontaneous Cord Vessel Description: 3 Vessels score (1 min): 8 score (5 min): 9 weight: 8 lb 5.794 oz Plan for aftercare: Routine care
[2024-11-10] MEDS: LANOLIN OINT 7 GM 1 APPLIC TOP (02:16)
[2024-11-10] MEDS: ACETAMINOPHEN 325 MG TABLET 650 MG PO ×2 (05:03→11:13)
[2024-11-10] MEDS: IBUPROFEN 600 MG TABLET PO ×2 (05:03→11:15)
[2024-11-10] MEDS: PRENATAL VIT,CALC/IRON/FOLIC 1 TABLET 1 TAB PO (11:15)
[2024-11-10] MEDS: DOCUSATE 100 MG CAPSULE PO (11:15)
[2024-11-10] MEDS: MEASLES,MUMPS,RUBELLA VACC/PF 0.5 ML VIAL SUBCUT (13:35)
--- NOTE | 2024-11-12 09:02 | PM.OBDS.1 ---
Discharge Providers Provider Date of admission: 11/08/24 18:09 Discharge Date: 11/11/24 Primary care physician: Doctor Hany MD Discharge provider: Faith Aceves MD Summary Hospital Course Date Patient Seen: 11/11/24 Time Patient Seen: 12:15 Diagnoses: Intrauterine at 41w0d GBS negative RH positive Hospital Course: The pt presented for post-dates IOL. She received cytotec followed by pitocin. She had an epidural for pain control. She had SROM with clear fluid and then progressed to complete dilation. The pt had an uncomplicated of a viable baby girl. There were no lacerations. , there were no complications. At the time of discharge she was voiding, ambulating, and passing flatus without difficulty. Her lochia was decreasing appropriately. Her pain was well controlled. She was with good latch. She will f/u in 6 weeks for check. Peripartum Data Infant Delivery Method: Natural Vaginal Laceration Description: None Episiotomy description: None Procedures: Spontaneous vaginal delivery complications: none [place] 1: Gender: Female Disposition of : home Time Spent with Patient Time attestation: Total time spent providing and/or coordinating discharge services: Objective Labs 11/08/24 18:50 Exam Narrative Exam Narrative: Gen: NAD, sitting comfortably in bed, appears well CV: RRR, no murmurs Resp: clear to auscultation bilaterally Abd: soft, appropriately tender, fundus firm and below the umbilicus, nondistended Ext: no edema Discharge Plan Discharge Plan Patient Disposition: Home Discharge orders & Medications Prescriptions: New acetaminophen 325 mg Tablet 650 mg PO Q6HR PRN (Reason: Pain, Mild (1-3)) Qty: 30 0RF docusate sodium 100 mg Capsule 100 mg PO DAILY Qty: 30 0RF ibuprofen 600 mg Tablet 600 mg PO Q6HR PRN (Reason: Pain, Mild (1-3)) Qty: 60 0RF Continued (DME) Double Electric Breast Pump and Supplies See Rx Instructions .ROUTE .MEDSUPPLY Qty: 1 0RF Rx Instructions: As directed vit-ferrous sulfat-FA 27 mg iron- 0.8 mg tablet PO Follow up/Referrals: Faith Aceves MD [Physician] - 11/17/24 12:45 pm (Please follow up in one week for an incision check on 11/17 at 1245. You also have a 6 week visit on 12/21 at 1330.) Diet/Activity/Treatments Diet: Diet as Tolerated and Regular Skin/Wound/Dressing Care Report to your healthcare provider any signs of infection, such as:: chills, fever, increased pain and unusual drainage Visit Report/Discharge Packet Instructions: DI for Labor and Delivery, Vaginal , DI for Depression Stand Alone Forms: Discharge: Care, Patient Portal/API, Stroke Signs & Symptoms Discharge Data Primary Care Provider: Miscellaneous,Doctor Discharges patient from system. Discharge Date/Time: 11/10/24 14:20
== END 2024-11-10 14:20 | disposition home or self-care (01) | DRG 807 ==
PROVIDERS: Admitting Provider Family Medicine; Referring Provider Family Medicine; Visit Provider Family Medicine
DX: O48.0 Post-term pregnancy (principal); Z37.0 Single live birth; Z3A.41 41 weeks gestation of pregnancy
CPT/HCPCS: 36415; 59050; 59200; 59400; 85025; 86850; 86900; 86901; G0379; J2590